=== PATIENT | female | born 1965 | race Caucasian/White ===

== ENCOUNTER 2016-06-10 16:37 | Emergency (ER) | payer OTHER ==
[2016-06-10 16:43] VITALS: BP 139/69; PULSE 61; RESP 18; TEMP 97.6
--- NOTE | 2016-06-10 17:14 | ED ---
Head Injury HPI - General Chief complaint: Head Injury Stated complaint: Head Injury Time Seen by Provider: 06/10/16 16:57 Source: patient, RN notes reviewed Mode of arrival: ambulatory Limitations: no limitations - History of Present Illness Initial comments: 50-year-old female presents emergency Department chief complaint head injury. Patient states yesterday she was trying to quickly get into her vehicle in which she struck the left side of her head, temporal region into the door. Patient states that she did feel dazed at the time but there was no LOC. Patient does complain of a headache and intermittent visual changes to the left eye. She states she just feels like there is pressure surrounding her eye but not actually override. Patient states there is a large amount of bruising which has gotten worse the swelling has improved. Patient has not taken Tylenol or ibuprofen for headache at this time. Patient denies any nausea, vomiting. There is been no abnormal behavior or confusion per significant other in the room. Patient has no neck pain or neck stiffness. - Related Data Home Medications Medication Instructions Recorded Confirmed Estrogen Otc 1 tab PO DAILY 06/10/16 06/10/16 Lisinopril [Prinivil] 5 mg PO DAILY 06/10/16 06/10/16 Allergies/Adverse reactions: Allergies Allergy/AdvReac Type Severity Reaction Status Date / Time No Known Allergies Allergy Verified 06/10/16 16:49 Review of Systems ROS Statement: Those systems with pertinent positive or pertinent negative responses have been documented in the HPI. ROS Other: All systems not noted in ROS Statement are negative. Past Medical History Past Medical History: Hypertension History of Any Multi-Drug Resistant Organisms: None Reported Past Surgical History: Section, Orthopedic Surgery, Tubal Ligation Additional Past Surgical History / Comment(s): Rotator Cuff x2 Past Psychological History: No Psychological Hx Reported Smoking Status: Former smoker Past Alcohol Use History: Occasional Past Drug Use History: None Reported General Exam Limitations: no limitations General appearance: alert, in no apparent distress Head exam: Present: atraumatic, normocephalic, normal inspection Eye exam: Present: normal appearance, PERRL, EOMI, periorbital swelling ( moderate left), periorbital tenderness (Left superior, lateral aspect). Absent : scleral icterus, conjunctival injection ENT exam: Present: normal exam, normal oropharynx, mucous membranes moist, TM's normal bilaterally, normal external ear exam Neck exam: Present: normal inspection, full ROM. Absent: tenderness, meningismus, lymphadenopathy Respiratory exam: Present: normal lung sounds bilaterally. Absent: respiratory distress, wheezes, rales, rhonchi, stridor Cardiovascular Exam: Present: regular rate, normal rhythm, normal heart sounds. Absent: systolic murmur, diastolic murmur, rubs, gallop, clicks Neurological exam: Present: alert, oriented X3, CN II-XII intact, reflexes normal. Absent: motor sensory deficit Skin exam: Present: warm, dry, intact, normal color. Absent: rash Course Vital Signs 06/10/16 16:40 Temperature 97.6 F Pulse Rate 61 Respiratory 18 Rate Blood Pressure 139/69 O2 Sat by Pulse 100 Oximetry Medical Decision Making - Medical Decision Making 50-year-old female presented emergency Department for head injury. Patient's CT does not show any intracranial bleed. Patient will be discharged return parameters discussed. Disposition Clinical Impression: Head injury, Contusion of forehead Disposition: HOME SELF-CARE Condition: Stable Instructions: Head Injury (ED) Additional Instructions: Please return to the Emergency Department if symptoms worsen or any other concerns. Time of Disposition: 17:57
--- NOTE | 2016-06-10 17:37 | CT ---
EXAMINATION TYPE: CT brain wo con DATE OF EXAM: 06/10/2016 5:29 PM COMPARISON: 01/01/2014 HISTORY: Left frontal injury yesterday. CT DLP: 1076 mGycm Automated exposure control for dose reduction was used. FINDINGS: The ventricles have normal size. There is no mass effect nor midline shift. There is no sign of intra cranial hemorrhage. The calvarium is intact. There is fluid level in left maxillary sinus. I see no e vidence of a blowout fracture of the orbits. There is no sign of an orbital mass. There is mild scalp soft tissue swelling over the left frontal bone. IMPRESSION: Fluid level in left maxillary sinus is new compared to old exam and consistent with sinusitis. No acu te intracranial abnormality.
== END 2016-06-10 18:04 | disposition home or self-care (01) ==
LOC: EC 16:37
DX: S09.90XA Unspecified injury of head, initial encounter (principal); S00.83XA Contusion of other part of head, initial encounter; W22.8XXA Striking against or struck by other objects, initial encounter; Z79.890 Hormone replacement therapy; I10 Essential (primary) hypertension; Z79.899 Other long term (current) drug therapy; Z87.891 Personal history of nicotine dependence
CPT/HCPCS: 70450; 99284; 99285

== ENCOUNTER → 2017-06-23 | Outpatient (CLI) | payer SELFPAY ==
--- NOTE | 2017-06-23 11:37 | WWHP ---
[facility] - HISTORY AND PHYSICAL DATE OF SERVICE: 06/23/2017 CHIEF COMPLAINT: The patient is here for her routine gynecologic exam and mammogram. HPI: This is a 51-year-old, G5, P2-0-3-2 with an LMP of 10/2014. The patient is status post tubal ligation. She states she has been having some problems with an intermittent vaginal discharge, which can seem like pus at times. She states it can be slightly yellowish without pruritus or odor. She states she can notice this for 2 weeks at a time. Currently, she is not experiencing the discharge. She has also been having painful intercourse. She states this is upon penetration. She states it has been worse during the past 2 years. It feels like something is blocking the vaginal opening. She has tried lubrication without much improvement. She believes she went through the menopausal change about 3 years ago. She did have hot flashes initially and these have improved. She states the discomfort with intercourse was not as bad a couple of years ago because they could get past the opening and intercourse was not as bad once they got past that point. This has become a bigger problem for her and her . PAST MEDICAL HISTORY: Chronic hypertension, currently not requiring medications. MEDICATIONS: Naproxen p.r.n. for knee pains. ALLERGIES: No known drug allergies. PAST SURGICAL HISTORY: section x2, laparoscopic tubal ligation in 1992, colonoscopy 2009. PAST PERSONAL LINES ACCOUNT EXECUTIVE HISTORY: She has no history of STDs. She has been menopausal since 2014. SOCIAL HISTORY: She denies tobacco and drug use and has about 10 alcohol containing drinks per year. 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 FAMILY HISTORY: Father had an NV. Two sisters have coronary artery disease. A brother also has coronary artery disease. Grandmother has diabetes. REVIEW OF SYSTEMS: She has lost about 8 pounds with dieting. This was after she gained nearly 20 pounds after starting at the [employer]. She denies respiratory, cardiac or GI problems. PHYSICAL EXAM: Blood pressure is 129/60, height 5 feet 4 inches, weight 184 pounds, BMI 31, temperature 96.9, pulse 55. This is a well-developed, well-nourished, white female, who is alert and oriented x3, in no acute distress. HEENT is within normal limits. NECK: Supple without mass or thyromegaly. CHEST AND LUNGS: Clear to auscultation. HEART: Regular rate and rhythm. Breasts are without mass or discharge. Axillary exam is negative for adenopathy. BACK: Negative for CVA tenderness. ABDOMEN: Soft, nontender, without palpable masses. PELVIC EXAM: Normal external genitalia without significant atrophy. I was unable to insert the regular Graves speculum because of very tight vaginal opening. The small Graves speculum all was difficult to insert because of very tight muscles at the introitus. The patient was unable to relax the muscles around the introitus. The cervix and vagina appear normal. There is no unusual discharge. There is no evidence of prolapse. I was able to insert a single digit for a bimanual examination. When trying to advance the finger past the introital muscles, there seems to be tenderness in the area of the posterior muscle. There is no cervical motion tenderness. The uterus is mid position, nongravid size and nontender. There are no palpable adnexal masses or tenderness. Rectovaginal exam is negative for mass or tenderness. This is negative for occult blood. EXTREMITIES: Nontender. IMPRESSION: 1. A 51-year-old menopausal female with dyspareunia, probably secondary to vaginismus and overactive pelvic floor muscles, possible levator ani overactivity. I doubt this is purely secondary to genital atrophy. 2. Intermittent vaginal discharge without any significant vaginal discharge at this time and she is currently asymptomatic. PLAN: 1. Pap smear was performed. 2. Self breast examination was discussed. 3. Screening mammogram will be done today. 4. We have discussed my findings of very tight introital muscles and my suspicion for vaginismus. We have discussed relaxation techniques with some type of biofeedback. We discussed approaches including using her fingers to try to dilate the opening with muscle relaxation techniques. We have also discussed the use of vaginal dilators which can be sequentially increased in size from small to large. 5. We have discussed the option of physical therapy for possible levator ani spasms and pelvic floor physical therapy. 6. GC and chlamydia testing from the cervix was obtained because of the intermittent vaginal discharge. 7. Trial of Estrace vaginal cream 1 to 2 grams intravaginally twice weekly. 8. I will try to get more information on vaginismus and will further discuss possible options with the patient. 9. She will also return in one year and p.r.n. OSMANY / NATO: [id number] / EVA
--- NOTE | 2017-06-23 11:44 | MM ---
Reason for exam: screening (asymptomatic). Last mammogram was performed 2 years and 7 months ago. Physical Findings: A clinical breast exam by your physician is recommended on an annual basis and results should be correlated with mammographic findings. MG Screening Mammo w CAD Bilateral CC and MLO view(s) were taken. Prior study comparison: November 20, 2014, bilateral MG screening mammo w CAD. April 18, 2013, bilateral digital screening mammo w/CAD. The breast tissue is heterogeneously dense. This may lower the sensitivity of mammography. Finding: There are indeterminate grouped/clustered calcifications in the lower inner quadrant, anterior position of the left breast. New finding since November 20, 2014 and April 18, 2013. ASSESSMENT: Incomplete: need additional imaging evaluation, BI-RAD 0 RECOMMENDATION: Special view mammogram of the left breast. [facility] will attempt to contact patient to return for supplemental views.
[2017-06-25 08:50] LABS: C. trachomatis,PCR Negative (Neg,Equiv); Chlamydia trachomatis Source Cervix; N. gonorrhoeae,PCR Negative (Neg,Equiv); Neisseria Source Cervix
== END | disposition home or self-care (01) ==
LOC: WWCWWP 09:30
PROVIDERS: ATTEND Obstetrics & Gynecology
DX: Z12.31 Encounter for screening mammogram for malignant neoplasm of breast (principal)
CPT/HCPCS: 77067; 87491; 87591

== ENCOUNTER → 2017-06-24 | Outpatient (CLI) | payer SELFPAY ==
--- NOTE | 2017-06-25 10:51 | MM ---
Reason for exam: additional evaluation requested from abnormal screening. Last mammogram was performed less than 1 month ago. Physical Findings: Nurse did not find any significant physical abnormalities on exam. MG Work Up Mamm w CAD LT CC with magnification, ML with magnification, and ML view(s) were taken of the left breast. Prior study comparison: June 23, 2017, bilateral MG screening mammo w CAD. November 20, 2014, bilateral MG screening mammo w CAD. The breast tissue is heterogeneously dense. This may lower the sensitivity of mammography. 9-10 o'clock faint punctate slightly heterogeneous calcifications anterior left breast appear to have been present on prior exams. A 6 month follow up recommended. These results were verbally communicated with the patient and result sheet given to the patient on 06/24/17. ASSESSMENT: Probably benign, BI-RAD 3 RECOMMENDATION: Follow-up diagnostic mammogram of the left breast in 6 months.
== END | disposition home or self-care (01) ==
LOC: RADMAMWWP 14:10
PROVIDERS: ATTEND Obstetrics & Gynecology
DX: R92.8 Other abnormal and inconclusive findings on diagnostic imaging of breast (principal)
CPT/HCPCS: 77065

== ENCOUNTER → 2017-12-21 | Outpatient (CLI) | payer OTHER ==
--- NOTE | 2017-12-21 15:33 | MM ---
Reason for exam: follow-up at short interval from prior study. Last mammogram was performed 6 months ago. Physical Findings: Nurse Summary: 1.5cm nodule in the left breast at 1 o'clock (nurse shannan). MG 3D Diag Mammo W/Cad LT CC and MLO view(s) were taken of the left breast. Technologist: Vanessa Giraldo RT (R)(M) Prior study comparison: June 24, 2017, left breast MG work up mamm w CAD LT. June 23, 2017, bilateral MG screening mammo w CAD. There are scattered fibroglandular densities. No significant new findings when compared with previous films. These results were verbally communicated with the patient and result sheet given to the patient on 12/21/17. ASSESSMENT: Incomplete: need additional imaging evaluation, BI-RAD 0 RECOMMENDATION: Ultrasound of the left breast.
--- NOTE | 2017-12-21 15:34 | USB ---
Reason for exam: additional evaluation requested from abnormal screening. US Breast Limited LT Left limited breast ultrasound including focal area of concern, retroareolar and axilla demonstrates no cystic or solid lesion seen. These results were verbally communicated with the patient and result sheet given to the patient on 12/21/17. ASSESSMENT: Negative, BI-RAD 1 RECOMMENDATION: Return to routine screening mammogram schedule for both breasts. Back on schedule. Manage patient on a clinical basis.
== END ==
LOC: RADMAMWWP 12:56
PROVIDERS: ATTEND Obstetrics & Gynecology
DX: R92.8 Other abnormal and inconclusive findings on diagnostic imaging of breast (principal)
CPT/HCPCS: 77061; 77065

== ENCOUNTER → 2019-05-12 | Outpatient (CLI) | payer OTHER ==
--- NOTE | 2019-05-13 14:53 | XR ---
EXAMINATION TYPE: XR Hip Complete LT DATE OF EXAM: 05/12/2019 CLINICAL HISTORY: Left hip pain with no known injury TECHNIQUE: AP and frogleg views of the left hip are obtained. COMPARISON: None. FINDINGS: There is no acute fracture/dislocation evident in the left hip. The joint space in the le ft hip appears aligned with acetabular roof sclerosis that is mild in small osteophytes at the acetab ular sourcil. The overlying soft tissue appears unremarkable. IMPRESSION: There is no acute fracture or dislocation in the left hip. Moderate left femoral acetabu lar arthropathy.
== END | disposition home or self-care (01) ==
LOC: RADXRMAIN 12:38
PROVIDERS: ATTEND Nurse Practitioner Family
DX: M12.852 Other specific arthropathies, not elsewhere classified, left hip (principal)
CPT/HCPCS: 73502

== ENCOUNTER 2019-05-20 11:11 | Observation (INO) | payer OTHER ==
[2019-05-20] MEDS ORDERED: NITROGLYCERIN OINT 1 INCH/GM PACKET TOPICAL STA (11:30)
[2019-05-20] MEDS ORDERED: NITROGLYCERIN SL TABS 0.4 MG TAB SUBLINGUAL STA (11:30)
[2019-05-20] MEDS ORDERED: ASPIRIN 81 MG PO STA (11:30)
--- NOTE | 2019-05-20 11:34 | ED ---
General Adult HPI - General Chief complaint: Chest Pain Stated complaint: chest pain Time Seen by Provider: 05/20/19 11:15 Source: patient, RN notes reviewed, old records reviewed Mode of arrival: ambulatory Limitations: no limitations - History of Present Illness Initial comments: This is a 53-year-old female presents emergency Department complaining of chest pain 2 hours prior to arrival. Patient states the pain is radiating to her neck. Patient states the pain is still there but not as intense as it was earlier. Patient denies any diaphoretic episodes. Patient states she was mildly short of breath. Patient denies any nausea. Patient's any abdominal pain. Patient states she has been suffering from gastroesophageal reflux over the last few days. Patient denies any lightheadedness or dizziness. Patient denies any headache patient denies numbness weakness. Patient denies any swelling to her legs or calf tenderness. - Related Data Home Medications Medication Instructions Recorded Confirmed Estrogen Otc 1 tab PO DAILY 06/10/16 06/10/16 Lisinopril [Prinivil] 5 mg PO DAILY 06/10/16 06/10/16 Allergies Allergy/AdvReac Type Severity Reaction Status Date / Time No Known Allergies Allergy Verified 05/20/19 11:12 Review of Systems ROS Statement: Those systems with pertinent positive or pertinent negative responses have been documented in the HPI. ROS Other: All systems not noted in ROS Statement are negative. Past Medical History Past Medical History: Hyperlipidemia, Hypertension, Thyroid Disorder History of Any Multi-Drug Resistant Organisms: None Reported Past Surgical History: Section, Orthopedic Surgery, Tubal Ligation Additional Past Surgical History / Comment(s): Rotator Cuff x2 Past Psychological History: No Psychological Hx Reported Smoking Status: Former smoker Past Alcohol Use History: Occasional Past Drug Use History: None Reported General Exam - General Exam Comments Initial Comments: GENERAL: Patient is well-developed and well-nourished. Patient is nontoxic and well-hydrated and is in mild distress. ENT: Neck is soft and supple. No significant lymphadenopathy is noted. Oropharynx is clear. Moist mucous membranes. Neck has full range of motion without eliciting any pain. EYES: The sclera were anicteric and conjunctiva were pink and moist. Extraocular movements were intact and pupils were equal round and reactive to light. Eyelids were unremarkable. PULMONARY: Unlabored respirations. Good breath sounds bilaterally. No audible rales rhonchi or wheezing was noted. CARDIOVASCULAR: There is a regular rate and rhythm without any murmurs gallops or rubs. ABDOMEN: Soft and nontender with normal bowel sounds. SKIN: Skin is clear with no lesions or rashes and otherwise unremarkable. NEUROLOGIC: Patient is alert and oriented x3. Cranial nerves II through XII are grossly intact. Motor and sensory are also intact. Normal speech, volume and content. Symmetrical smile. MUSCULOSKELETAL: Normal extremities with adequate strength and full range of motion. No lower extremity swelling or edema. No calf tenderness. LYMPHATICS: No significant lymphadenopathy is noted PSYCHIATRIC: Normal psychiatric evaluation. Limitations: no limitations Course Vital Signs 05/20/19 05/20/19 05/20/19 11:12 12:12 12:56 Temperature 97.6 F Pulse Rate 71 62 60 Respiratory 18 17 17 Rate Blood Pressure 165/91 156/80 156/80 O2 Sat by Pulse 100 100 98 Oximetry 05/20/19 13:18 Temperature Pulse Rate 57 L Respiratory 18 Rate Blood Pressure 137/71 O2 Sat by Pulse 99 Oximetry Medical Decision Making - Medical Decision Making EKG shows normal sinus rhythm at 67 bpm NE interval is on a 46 QRS is 94 QT interval 396 QTC is 418. Patient's EKG shows no significant elevation or depression. Patient was given aspirin and Nitropaste in the emergency department shortly thereafter her pain subsided to 0. Patient's chest x-ray showed no acute abnormality. The patient was having unstable angina/started the patient on heparin. I spoke with Dr. Ruiz he agreed to admit the patient admitted the patient was getting orders. I consulted cardiology I continued aspirin on heparin and Nitropaste on the floor. - Lab Data Result diagrams: 05/20/19 11:34 05/20/19 11:34 Lab Results 05/20/19 05/20/19 05/20/19 Range/Units 11:34 11:34 11:34 WBC 6.7 (3.8-10.6) k/uL RBC 4.23 (3.80-5.40) m/uL Hgb 12.7 (11.4-16.0) gm/dL Hct 36.8 (34.0-46.0) % MCV 87.0 (80.0-100.0) fL MCH 30.0 (25.0-35.0) pg MCHC 34.5 (31.0-37.0) g/dL RDW 13.0 (11.5-15.5) % Plt Count 384 (150-450) k/uL Neutrophils % 62 % Lymphocytes % 20 % Monocytes % 8 % Eosinophils % 4 % Basophils % 2 % Neutrophils # 4.1 (1.3-7.7) k/uL Lymphocytes # 1.3 (1.0-4.8) k/uL Monocytes # 0.6 (0-1.0) k/uL Eosinophils # 0.3 (0-0.7) k/uL Basophils # 0.2 (0-0.2) k/uL PT (9.0-12.0) sec INR (<1.2) APTT (22.0-30.0) sec Sodium 138 (137-145) mmol/L Potassium 3.7 (3.5-5.1) mmol/L Chloride 102 (98-107) mmol/L Carbon Dioxide 28 (22-30) mmol/L Anion Gap 8 mmol/L BUN 28 H (7-17) mg/dL Creatinine 0.95 (0.52-1.04) mg/dL Est GFR (CKD-EPI)AfAm 79 (>60 ml/min/1.73 sqM) Est GFR (CKD-EPI)NonAf 69 (>60 ml/min/1.73 sqM) Glucose 88 (74-99) mg/dL Calcium 9.9 (8.4-10.2) mg/dL Magnesium 1.9 (1.6-2.3) mg/dL Total Bilirubin 0.5 (0.2-1.3) mg/dL AST 33 (14-36) U/L ALT 31 (4-34) U/L Alkaline Phosphatase 98 (38-126) U/L Troponin I (0.000-0.034) ng/mL NT-Pro-B Natriuret Pep 50 pg/mL Total Protein 8.0 (6.3-8.2) g/dL Albumin 4.5 (3.5-5.0) g/dL 05/20/19 05/20/19 Range/Units 11:34 11:34 WBC (3.8-10.6) k/uL RBC (3.80-5.40) m/uL Hgb (11.4-16.0) gm/dL Hct (34.0-46.0) % MCV (80.0-100.0) fL MCH (25.0-35.0) pg MCHC (31.0-37.0) g/dL RDW (11.5-15.5) % Plt Count (150-450) k/uL Neutrophils % % Lymphocytes % % Monocytes % % Eosinophils % % Basophils % % Neutrophils # (1.3-7.7) k/uL Lymphocytes # (1.0-4.8) k/uL Monocytes # (0-1.0) k/uL Eosinophils # (0-0.7) k/uL Basophils # (0-0.2) k/uL PT 9.5 (9.0-12.0) sec INR 0.9 (<1.2) APTT 23.1 (22.0-30.0) sec Sodium (137-145) mmol/L Potassium (3.5-5.1) mmol/L Chloride (98-107) mmol/L Carbon Dioxide (22-30) mmol/L Anion Gap mmol/L BUN (7-17) mg/dL Creatinine (0.52-1.04) mg/dL Est GFR (CKD-EPI)AfAm (>60 ml/min/1.73 sqM) Est GFR (CKD-EPI)NonAf (>60 ml/min/1.73 sqM) Glucose (74-99) mg/dL Calcium (8.4-10.2) mg/dL Magnesium (1.6-2.3) mg/dL Total Bilirubin (0.2-1.3) mg/dL AST (14-36) U/L ALT (4-34) U/L Alkaline Phosphatase (38-126) U/L Troponin I <0.012 (0.000-0.034) ng/mL NT-Pro-B Natriuret Pep pg/mL Total Protein (6.3-8.2) g/dL Albumin (3.5-5.0) g/dL Critical Care Time Critical Care Time: Yes Total Critical Care Time: 35 Disposition Clinical Impression: Unstable angina pectoris Disposition: ADMITTED IP TO THIS HOSP Referrals: Pily Valladares DO [REFERRING] - 1-2 days Time of Disposition: 13:44
[2019-05-20 12:00] LABS: Basophils # (A) 0.2 k/uL (0-0.2); Basophils % (A) 2 %; Eosinophils # (A) 0.3 k/uL (0-0.7); Eosinophils % (A) 4 %; HCT 36.8 % (34.0-46.0); HGB 12.7 gm/dL (11.4-16.0); Lymphocytes # (A) 1.3 k/uL (1.0-4.8); Lymphocytes % (A) 20 %; MCHC 34.5 g/dL (31.0-37.0); Mean Platelet Volume 8.3; Monocytes # (A) 0.6 k/uL (0-1.0); Monocytes % (A) 8 %; Neutrophils # (A) 4.1 k/uL (1.3-7.7); Neutrophils % (A) 62 %; Platelet Count 384 k/uL (150-450); RBC 4.23 m/uL (3.80-5.40); WBC 6.7 k/uL (3.8-10.6)
[2019-05-20 12:01] LABS: Albumin 4.5 g/dL (3.5-5.0); Calcium 9.9 mg/dL (8.4-10.2); Magnesium 1.9 mg/dL (1.6-2.3); Potassium 3.7 mmol/L (3.5-5.1); Total Bilirubin 0.5 mg/dL (0.2-1.3)
[2019-05-20 12:09] LABS: INR 0.9 (<1.2); Partial Thromboplastin Time 23.1 sec (22.0-30.0); Prothrombin Time 9.5 sec (9.0-12.0)
--- NOTE | 2019-05-20 12:11 | XR ---
EXAMINATION TYPE: XR chest 2V DATE OF EXAM ORDERED: 05/20/2019 HISTORY: Chest Pain. REFERENCE: None. FINDINGS: The lungs are clear. Pleural spaces are clear. Heart size is normal. IMPRESSION: NORMAL CHEST.
[2019-05-20] MEDS ORDERED: HEPARIN SODIUM,PORCINE 5,000 UNIT/ML 1 ML VIAL IV ONE (13:33)
[2019-05-20] MEDS ORDERED: NITROGLYCERIN SL TABS 0.4 MG TAB SUBLINGUAL PRN (13:44)
[2019-05-20] MEDS ORDERED: HEPARIN SOD,PORK IN 0.45% NACL 25,000 UNIT in 0.45% NACL 1 250ML.BAG IV SCH (13:45)
[2019-05-20] MEDS ORDERED: ACETAMINOPHEN TAB 500 MG TAB PO PRN (15:31)
[2019-05-20] MEDS: NITROGLYCERIN OINT 1 INCH/GM PACKET TOPICAL SCH ×2 (17:27→23:30)
--- NOTE | 2019-05-20 18:53 | P.HPIM ---
History of Present Illness H&P Date: 05/20/19 Chief Complaint: Chest pain History of present complaint: This is a pleasant 53-year-old patient of Dr. Farmer. Chronic stable medical conditions include GERD, hypertension, hyperlipidemia, hypothyroid. About 4 years ago patient had a negative stress test. Patient does take naproxen appetite for a left hip arthritis. Patient was at work this morning when she developed a sharp midsternal pain and felt slightly short winded. Also slight nausea. And the discomfort went up to the neck and she fell little bit of throat tightening. Associated there was dizziness lightheadedness. For 2 days also she notices increased heartburn. States she did have peptic ulcer disease age of 14. Does take naproxen at night for left hip arthritis. Admitted for unstable angina. No prior cardiac history. 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 Family history: Patient's 2 sisters have coronary stents Physical examination: VITAL SIGNS: 97.6, 71, 18, 165/91, 100% room air GENERAL: [BMI 31.8, laying in bed awake comfortable. EYES: Pupils equal. Conjunctiva normal. HEENT: External appearance of nose and ears normal, oral cavity grossly normal. NECK: JVD not raised; masses not palpable. HEART: First and second heart sounds are normal; no edema. LUNGS: Respiratory rate normal; clear to auscultation. ABDOMEN: Soft, minimal epigastric tenderness, liver spleen not palpable, no masses palpable. PSYCH: Alert and oriented x3; mood and affect normal. NEUROLOGICAL: Cranial nerves grossly intact; no facial asymmetry, power and sensation grossly intact. LYMPHATICS: No lymph nodes palpable in the axilla and neck INVESTIGATIONS, reviewed in the clinical context: White count 6.7 hemoglobin 12.7 platelets 384 progression 3.7 creatinine 0.95 Troponin I 0.0122 EKG tracing personally reviewed by me-normal sinus rhythm Chest x-ray film personally reviewed by me-lung castellanos are clear Assessment: -This is a patient with precordial chest pain was cardiac risk factors include hypertension, hyperlipidemia, and a positive family history, with some atypical features with negative troponin 2 will need a further cardiac workup -GERD exacerbation in a patient with a prior history of peptic ulcer disease at the age of 14, and taking naproxen at night for left hip arthritis -Essential hypertension -Hyperlipidemia -Hypothyroid -Obesity BMI 31.8 Plan: Home medications resumed. Patient is on aspirin and Nitropaste IV heparin. Serial cardiac enzymes and place. Cardiology consulted. Naproxen has been held. Care was discussed with the patient. Questions were answered. Past Medical History Past Medical History: Hyperlipidemia, Hypertension, Thyroid Disorder Additional Past Medical History / Comment(s): Borderline diabetic. TIA 4 years ago. GI ulcer at age 14 (Does not remember exactly what happened to fix it. History of Any Multi-Drug Resistant Organisms: None Reported Past Surgical History: Section, Orthopedic Surgery, Tubal Ligation Additional Past Surgical History / Comment(s): Rotator Cuff x2 Past Anesthesia/Blood Transfusion Reactions: Postoperative Nausea & Vomiting (PONV) Past Psychological History: No Psychological Hx Reported Smoking Status: Former smoker Past Alcohol Use History: Occasional Past Drug Use History: None Reported - Past Family History Sister(s) Family Medical History: Coronary Artery Disease (CAD) Father Additional Family Medical History / Comment(s): Heart failure. Medications and Allergies Home Medications Medication Instructions Recorded Confirmed Type Atorvastatin [Lipitor] 40 mg PO DAILY 05/20/19 05/20/19 History Hydrochlorothiazide 25 mg PO DAILY 05/20/19 05/20/19 History Levothyroxine Sodium [Synthroid] 125 mcg PO DAILY 05/20/19 05/20/19 History Naproxen 1,000 mg PO HS 05/20/19 05/20/19 History Allergies Allergy/AdvReac Type Severity Reaction Status Date / Time No Known Allergies Allergy Verified 05/20/19 13:54 Physical Exam Vitals: Vital Signs Temp Pulse Pulse Resp BP BP Pulse Ox 05/20/19 16:00 69 20 135/65 100 05/20/19 14:27 62 20 137/69 100 05/20/19 14:24 61 18 145/68 98 05/20/19 13:44 100 05/20/19 13:18 57 L 18 137/71 99 05/20/19 12:56 60 17 156/80 98 05/20/19 12:12 62 17 156/80 100 05/20/19 11:12 97.6 F 71 18 165/91 100 Intake and Output 05/20/19 05/20/19 05/20/19 06:59 14:59 22:59 Other: # Voids 0 Weight 83.915 kg Results CBC & Chem 7: 05/20/19 11:34 05/20/19 11:34 Labs: Abnormal Lab Results - Last 24 Hours (Table) 05/20/19 Range/Units 11:34 BUN 28 H (7-17) mg/dL Thrombosis Risk Factor Assmnt - Choose All That Apply Any of the Below Risk Factors Present?: Yes Each Factor Represents 1 point: Age 41-60 years Other Risk Factors: No Other congenital or acquired thrombophilia - If yes, enter type in comment: No Thrombosis Risk Factor Assessment Total Risk Factor Score: 1 Thrombosis Risk Factor Assessment Level: Low Risk
[2019-05-20] MEDS: PANTOPRAZOLE 40 MG TABLET PO SCH (20:06)
[2019-05-20] MEDS ORDERED: MELATONIN 1 MG TAB PO SCH (21:00)
[2019-05-21] MEDS: NITROGLYCERIN OINT 1 INCH/GM PACKET TOPICAL SCH ×2 (05:09→11:43)
[2019-05-21] MEDS: CALCIUM CARBONATE LIQUID 500 MG/5 ML CUP PO SCH ×2 (06:18→12:20)
[2019-05-21] MEDS: PANTOPRAZOLE 40 MG TABLET PO SCH (06:18)
[2019-05-21 06:29] LABS: Cholesterol 221 mg/dL (<200); HDL Cholesterol 53 mg/dL (40-60); LDL Cholesterol,Calculated 122 mg/dL (0-99); Triglycerides 231 mg/dL (<150)
[2019-05-21] MEDS ORDERED: LEVOTHYROXINE 125 MCG TAB PO SCH (06:30)
[2019-05-21] MEDS ORDERED: ATORVASTATIN 40 MG TAB PO SCH (09:00)
[2019-05-21] MEDS ORDERED: ASPIRIN 325 MG TAB PO SCH (09:00)
[2019-05-21] MEDS ORDERED: HYDROCHLOROTHIAZIDE 25 MG TAB PO SCH (09:00)
[2019-05-21 09:12] VITALS: RESP 20; TEMP 97.7
--- NOTE | 2019-05-21 09:41 | P.CRDCN ---
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 She does have past medical history of eye pretension, hyperlipidemia, hypothyroidism, borderline diabetes with a hemoglobin A1c of 6.5, gastroesophageal reflux disease, possible early onset dementia that has been worked up as an outpatient with Dr. Vo. Patient presented to [facility] emergency center due to chest pain starting 2 hours prior to arrival that was a sharp type of pain in the midsternal area. She also felt a tightness around her throat. She denies any diaphoresis, no abdominal pain, no nausea. She denies lightheadedness or dizziness. She denies any lower extremity edema. Patient gives history that approximate 4 years ago she had a negative stress test. Upon presentation, blood pressure 165/91 and heart rate 71. EKG was in normal sinus rhythm with no acute ST-T wave changes. Chest x-ray was normal. CBC and CMP unremarkable. Troponin negative on 3 draws, troponin 231, cholesterol 221, LDL 122 HDL 53. Patient denies having any chest pain at the time of evaluation. She is willing to go home and have outpatient stress testing done. Patient does have a family history of coronary artery disease in dad is with history of coronary artery disease, 2 out of her 4 sisters have cardiac stents, mom has been worked up for palpitations. Patient does relate that she is under a lot of stress at home as children and grandchildren will be moving in with her in the near future. Review Of Systems: Constitutional: No fever, no chills, no night sweats. No weight change. No weakness, fatigue or lethargy. No daytime sleepiness. EENT: No headache. No blurred vision or double vision, no loss of vision. No loss of Hearing, no dizziness. No nasal drainage or congestion. No epistaxis. No sore throat. Lungs: No shortness of breath, cough, no sputum production. No wheezing. Cardiovascular: No chest pain, no lower extremity edema. No palpitations. No paroxysmal nocturnal dyspnea. No orthopnea. No lightheadedness or dizziness. No syncopal episodes. Abdominal: No abdominal pain. No nausea, vomiting. No diarrhea. No constipation. No bloody or tarry stools. No loss of appetite. Genitourinary: No dysuria, increased frequency, urgency. No urinary retention. Musculoskeletal: No myalgias. No muscle weakness, no gait dysfunction, no frequent falls. No back pain. No neck pain. Integumentary: No wounds, no lesions. No rash or pruritus. Neurologic: No aphasia. No facial droop. No change in mentation. No head injury. No headache. No paralysis. No paresthesia. Psychiatric: No depression. No anxiety. No mood swings. Endocrine: No abnormal blood sugars. No weight change. No excessive sweating or thirst. Physical examination: Gen: This is a 53-year-old female. She is resting in bed and appears to be comfortable and in no acute distress VS: Afebrile, heart rate 69, blood pressure 130/71, pulse ox 97% on room air HEENT: Head is atraumatic, normocephalic. Pupils equal, round. Sclerae is anicteric. NECK: Supple. No JVD. No lymphadenopathy. No thyromegaly. LUNGS: Clear to auscultation. No wheezes or rhonchi. No intercostal retractions. No chest wall tenderness. HEART: Regular rate and rhythm. No murmur. ABDOMEN: Soft. Bowel sounds are present. No masses. No tenderness. EXTREMITIES: No pedal edema. No calf tenderness. NEUROLOGICAL: Patient is awake, alert and oriented x3. Cranial nerves 2 through 12 are grossly intact. Assessment: Chest pain, acute coronary syndrome ruled out Hypertension Hyperlipidemia Borderline diabetes mellitus type 2 Hypothyroidism Family history of coronary artery disease Plan: Patient will be ambulated and if chest pain free, cleared for discharge home Continue current home medications, add aspirin 81 mg daily Outpatient stress testing to rule out coronary artery disease Follow-up with Dr. Patel in the office within one week Thank you kindly for this consultation. Nurse practitioner note has been reviewed, I agree with documented findings and plan of care. Patient was seen and examined. Past Medical History Past Medical History: Hyperlipidemia, Hypertension, Thyroid Disorder Additional Past Medical History / Comment(s): Borderline diabetic. TIA 4 years ago. GI ulcer at age 14 (Does not remember exactly what happened to fix it. History of Any Multi-Drug Resistant Organisms: None Reported Past Surgical History: Section, Orthopedic Surgery, Tubal Ligation Additional Past Surgical History / Comment(s): Rotator Cuff x2 Past Anesthesia/Blood Transfusion Reactions: Postoperative Nausea & Vomiting (PONV) Past Psychological History: No Psychological Hx Reported Smoking Status: Former smoker Past Alcohol Use History: Occasional Past Drug Use History: None Reported - Past Family History Sister(s) Family Medical History: Coronary Artery Disease (CAD) Father Additional Family Medical History / Comment(s): Heart failure. Medications and Allergies Home Medications Medication Instructions Recorded Confirmed Type Atorvastatin [Lipitor] 40 mg PO DAILY 05/20/19 05/20/19 History Hydrochlorothiazide 25 mg PO DAILY 05/20/19 05/20/19 History Levothyroxine Sodium [Synthroid] 125 mcg PO DAILY 05/20/19 05/20/19 History Naproxen 1,000 mg PO HS 05/20/19 05/20/19 History Allergies Allergy/AdvReac Type Severity Reaction Status Date / Time No Known Allergies Allergy Verified 05/20/19 13:54 Physical Exam Vitals: Vital Signs Temp Pulse Pulse Resp BP BP Pulse Ox 05/21/19 08:00 97.7 F 69 20 130/71 97 05/21/19 04:00 98.0 F 64 19 158/75 100 05/20/19 23:33 58 L 16 05/20/19 23:30 97.7 F 58 L 16 121/61 100 05/20/19 20:00 97.4 F L 61 18 119/55 99 05/20/19 16:00 69 20 135/65 100 05/20/19 14:27 62 20 137/69 100 05/20/19 14:24 61 18 145/68 98 05/20/19 13:44 100 05/20/19 13:18 57 L 18 137/71 99 05/20/19 12:56 60 17 156/80 98 05/20/19 12:12 62 17 156/80 100 05/20/19 11:12 97.6 F 71 18 165/91 100 Intake and Output 05/20/19 05/21/19 05/21/19 22:59 06:59 14:59 Intake Total 169.984 Balance 169.984 Intake: Intake, IV Titration 169.984 Amount Heparin Sod,Pork in 0.45% 169.984 NaCl 25,000 unit In 0.45 % NaCl 1 250ml.bag @ 11.8 UNITS/KG/HR 9.902 mls/hr IV .Q24H [facility] Rx#: [id number] Other: Voiding Method Toilet Toilet # Voids 1 1 Weight 83.4 kg Results 05/20/19 11:34 05/20/19 11:34 Cardiac Enzymes 05/20/19 05/20/19 05/20/19 Range/Units 11:34 11:34 17:07 AST 33 (14-36) U/L Troponin I <0.012 <0.012 (0.000-0.034) ng/mL 05/20/19 Range/Units 23:00 AST (14-36) U/L Troponin I <0.012 (0.000-0.034) ng/mL Coagulation 05/20/19 05/20/19 05/21/19 Range/Units 11:34 20:08 05:52 PT 9.5 (9.0-12.0) sec APTT 23.1 45.0 H 41.8 H (22.0-30.0) sec Lipids 05/21/19 Range/Units 05:52 Triglycerides 231 H (<150) mg/dL Cholesterol 221 H (<200) mg/dL HDL Cholesterol 53 (40-60) mg/dL CBC 05/20/19 Range/Units 11:34 WBC 6.7 (3.8-10.6) k/uL RBC 4.23 (3.80-5.40) m/uL Hgb 12.7 (11.4-16.0) gm/dL Hct 36.8 (34.0-46.0) % Plt Count 384 (150-450) k/uL Comprehensive Metabolic Panel 05/20/19 Range/Units 11:34 Sodium 138 (137-145) mmol/L Potassium 3.7 (3.5-5.1) mmol/L Chloride 102 (98-107) mmol/L Carbon Dioxide 28 (22-30) mmol/L BUN 28 H (7-17) mg/dL Creatinine 0.95 (0.52-1.04) mg/dL Glucose 88 (74-99) mg/dL Calcium 9.9 (8.4-10.2) mg/dL AST 33 (14-36) U/L ALT 31 (4-34) U/L Alkaline Phosphatase 98 (38-126) U/L Total Protein 8.0 (6.3-8.2) g/dL Albumin 4.5 (3.5-5.0) g/dL Current Medications Generic Name Dose Route Start Last Admin Trade Name Fredrickq PRN Reason Stop Dose Admin Acetaminophen 1,000 mg 05/20/19 15:31 05/20/19 18:45 Tylenol Tab PO 1,000 mg HS PRN Administration Fever and/ or Pain Aspirin 325 mg 05/21/19 09:00 Aspirin PO DAILY [facility] Atorvastatin Calcium 40 mg 05/21/19 09:00 Lipitor PO DAILY [facility] Calcium Carbonate/Glycine 500 mg 05/21/19 07:30 05/21/19 06:18 Tums Liquid PO Not Given TID-W/MEALS [facility] Hydrochlorothiazide 25 mg 05/21/19 09:00 Hydrodiuril PO DAILY [facility] Heparin Sodium/Sodium Chloride 250 mls @ 9.902 mls/hr 05/20/19 13:45 05/21/19 07:00 25,000 unit/ Sodium Chloride IV 13.8 units/kg/hr .Q24H [facility] 11.58 mls/hr Titration Protocol 11.8 UNITS/KG/HR Levothyroxine Sodium 125 mcg 05/21/19 06:30 05/21/19 06:18 Synthroid PO 125 mcg DAILY@0630 [facility] Administration Melatonin 2 mg 05/20/19 21:00 05/20/19 18:45 Melatonin PO 2 mg HS [facility] Administration Nitroglycerin 0.4 mg 05/20/19 13:44 Nitrostat SUBLINGUAL Q5M PRN Chest Pain Nitroglycerin 1 inch 05/20/19 18:00 05/21/19 05:09 Nitro-Bid Oint TOPICAL Not Given Q6HR [facility] Pantoprazole Sodium 40 mg 05/20/19 18:45 05/21/19 06:18 Protonix PO 40 mg AC-BID [facility] Administration Intake and Output 05/20/19 05/21/19 05/21/19 22:59 06:59 14:59 Intake Total 169.984 Balance 169.984 Intake: Intake, IV Titration 169.984 Amount Heparin Sod,Pork in 0.45% 169.984 NaCl 25,000 unit In 0.45 % NaCl 1 250ml.bag @ 11.8 UNITS/KG/HR 9.902 mls/hr IV .Q24H [facility] Rx#: [id number] Other: Voiding Method Toilet Toilet # Voids 1 1 Weight 83.4 kg 05/20/19 11:34 05/20/19 11:34
[2019-05-21 12:43] VITALS: BP 119/65; PULSE 72
--- NOTE | 2019-05-21 22:37 | P.DS ---
Providers Date of admission: 05/20/19 13:46 Expected date of discharge: 05/21/19 Attending physician: Jonatan Ruiz Consults: 05/20/19 13:44 Consult Physician Urgent Consulting Provider: [facility] Consult Reason/Comments: Unstable angina Do you want consulting provider notified?: Yes Primary care physician: Brandt Farmer [facility] Course: Chief Complaint: Chest pain History of present complaint: This is a pleasant 53-year-old patient of Dr. Farmer. Chronic stable medical conditions include GERD, hypertension, hyperlipidemia, hypothyroid. About 4 years ago patient had a negative stress test. Patient does take naproxen at night for a left hip arthritis. Patient was at work this morning when she developed a sharp midsternal pain and felt slightly short winded. Also slight nausea. And the discomfort went up to the neck and she fell little bit of throat tightening. Associated there was dizziness lightheadedness. For 2 days also she notices increased heartburn. States she did have peptic ulcer disease age of 14. Does take naproxen at night for left hip arthritis. Admitted for unstable angina. No prior cardiac history. Seen by cardiology. Okay to be discharged. Outpatient stress test. Patient told to cut back the dose of naproxen. No further symptoms. Consultation: Dr. Darnell Du From cardiology Physical examination: VITAL SIGNS: 97.7, 69, 20, 130/71, 97% on room air GENERAL: Laying in bed, comfortable. EYES: Pupils equal. Conjunctiva normal. HEENT: External appearance of nose and ears normal, oral cavity grossly normal. NECK: JVD not raised; masses not palpable. HEART: First and second heart sounds are normal; no edema. LUNGS: Respiratory rate normal; clear to auscultation. ABDOMEN: Soft, minimal epigastric tenderness, liver spleen not palpable, no masses palpable. PSYCH: Alert and oriented x3; mood and affect normal. INVESTIGATIONS, reviewed in the clinical context: White count 6.7 hemoglobin 12.7 platelets 384 progression 3.7 creatinine 0.95 Troponin I 0.0122 EKG tracing personally reviewed by me-normal sinus rhythm Chest x-ray film personally reviewed by me-lung castellanos are clear LDL 122 Assessment: -precordial chest pain was cardiac risk factors include hypertension, hyperlipidemia, and a positive family history, with some atypical features with negative troponin 2 will need a further cardiac workup -GERD exacerbation in a patient with a prior history of peptic ulcer disease at the age of 14, and taking naproxen at night for left hip arthritis -Essential hypertension -Hyperlipidemia -Hypothyroid -Obesity BMI 31.8 Disposition: Home Patient Condition at Discharge: Stable Plan - Discharge Summary Discharge Rx Participant: Yes New Discharge Prescriptions: New Aspirin EC [Ecotrin Low Dose] 81 mg PO DAILY #30 tablet. Omeprazole [PriLOSEC] 20 mg PO AC-BID #60 cap Continue Levothyroxine Sodium [Synthroid] 125 mcg PO DAILY Atorvastatin [Lipitor] 40 mg PO DAILY Hydrochlorothiazide 25 mg PO DAILY Changed Naproxen 500 mg PO HS #0 Discharge Medication List Atorvastatin [Lipitor] 40 mg PO DAILY 05/20/19 [History] Hydrochlorothiazide 25 mg PO DAILY 05/20/19 [History] Levothyroxine Sodium [Synthroid] 125 mcg PO DAILY 05/20/19 [History] Aspirin EC [Ecotrin Low Dose] 81 mg PO DAILY #30 tablet. 05/21/19 [Rx] Naproxen 500 mg PO HS #0 05/21/19 [Rx] Omeprazole [PriLOSEC] 20 mg PO AC-BID #60 cap 05/21/19 [Rx] Follow up Appointment(s)/Referral(s): Shiva Patel MD [STAFF PHYSICIAN] - 1 Week (To schedule an outpatient stress test. ) Pily Valladares DO [REFERRING] - 1-2 days Julio Steward MD [STAFF PHYSICIAN] - 1 Week (egd ) Patient Instructions/Handouts: Cardiac Stress Test (GEN) Discharge Disposition: HOME SELF-CARE
== END 2019-05-21 14:47 | disposition home or self-care (01) ==
LOC: SUPCPDRO 11:11 → EC 11:11 → 3SCARD 13:46
PROVIDERS: ADMIT Hospitalist; ATTEND Hospitalist
DX: R07.2 Precordial pain (principal); K21.9 Gastro-esophageal reflux disease without esophagitis; E03.9 Hypothyroidism, unspecified; I10 Essential (primary) hypertension; E78.5 Hyperlipidemia, unspecified; R73.03 Prediabetes; E66.9 Obesity, unspecified; Z87.11 Personal history of peptic ulcer disease; M16.12 Unilateral primary osteoarthritis, left hip; Z68.31 Body mass index [BMI] 31.0-31.9, adult; Z79.890 Hormone replacement therapy; Z79.899 Other long term (current) drug therapy; Z82.49 Family history of ischemic heart disease and other diseases of the circulatory system; Z86.73 Personal history of transient ischemic attack (TIA), and cerebral infarction without residual deficits; Z87.891 Personal history of nicotine dependence; Z79.1 Long term (current) use of non-steroidal anti-inflammatories (NSAID); Z63.79 Other stressful life events affecting family and household
CPT/HCPCS: 96366 ×2; 93005 ×2; 96376; 96365; 99291; 36415; 83880; 80061; 80053; 83735; 84484; 85025; 85610; 85730 ×2; 71046; G0378 ×2; J1644 ×2

== ENCOUNTER 2020-07-19 18:43 | Emergency (ER) | payer OTHER ==
[2020-07-19 18:49] VITALS: BP 195/91; PULSE 80; RESP 18; TEMP 98.6
[2020-07-19] MEDS ORDERED: Acetaminophen-Codeine 300-30mg TAB PO STA (19:12)
--- NOTE | 2020-07-19 19:23 | ED ---
Head Injury HPI - General Chief complaint: Head Injury Stated complaint: fall/head lac Time Seen by Provider: 07/19/20 19:03 Source: patient Mode of arrival: wheelchair Limitations: no limitations - History of Present Illness Initial comments: 54-year-old female presents emergency Department with chief complaint of a head injury. Status occurred about half hour prior to arrival. Patient states she slipped and fell on the edge of the car. Reports a hematoma on the left temporal region as well as a laceration measuring approximately 1.5 cm. states the tetanus is up-to-date. Reports pain sharp in nature 01/10. Denies blurry vision, gait instability, one-sided weakness or paresthesias. She does report some bleeding at the injured site. She also reports some pain along the left paraspinal region of the cervical spine. She denies any other injuries. - Related Data Home Medications Medication Instructions Recorded Confirmed Naproxen 500 mg PO BID 07/19/20 07/19/20 Allergies/Adverse reactions: Allergies Allergy/AdvReac Type Severity Reaction Status Date / Time No Known Allergies Allergy Verified 07/19/20 19:49 Review of Systems ROS Statement: Those systems with pertinent positive or pertinent negative responses have been documented in the HPI. ROS Other: All systems not noted in ROS Statement are negative. Past Medical History Past Medical History: Hyperlipidemia, Hypertension, Thyroid Disorder Additional Past Medical History / Comment(s): Borderline diabetic. TIA 4 years ago. GI ulcer at age 14 (Does not remember exactly what happened to fix it. History of Any Multi-Drug Resistant Organisms: None Reported Past Surgical History: Section, Orthopedic Surgery, Tubal Ligation Additional Past Surgical History / Comment(s): Rotator Cuff x2 Past Anesthesia/Blood Transfusion Reactions: Postoperative Nausea & Vomiting (PONV) Past Psychological History: No Psychological Hx Reported Smoking Status: Never smoker Past Alcohol Use History: Occasional Past Drug Use History: None Reported - Past Family History Sister(s) Family Medical History: Coronary Artery Disease (CAD) Father Additional Family Medical History / Comment(s): Heart failure. General Exam Limitations: no limitations General appearance: alert, in no apparent distress Head exam: Present: normocephalic. Absent: atraumatic (1.5 cm laceration to the left upper region along with underlying hematoma. No active bleeding at this time.), normal inspection, other (Negative Cao sign, raccoon eyes, hemotympanum.) Eye exam: Present: normal appearance, PERRL, EOMI Pupils: Present: normal accommodation ENT exam: Present: normal exam, normal oropharynx, mucous membranes moist Neck exam: Present: normal inspection, tenderness (Tenderness over the left paraspinal region of the cervical spine.), full ROM. Absent: lymphadenopathy Respiratory exam: Present: normal lung sounds bilaterally. Absent: respiratory distress Cardiovascular Exam: Present: regular rate, normal rhythm, normal heart sounds Extremities exam: Present: normal inspection, full ROM, normal capillary refill. Absent: tenderness Back exam: Present: normal inspection, full ROM. Absent: tenderness, CVA ten derness (R), CVA tenderness (L) Neurological exam: Present: alert, oriented X3 Psychiatric exam: Present: normal affect, normal mood Skin exam: Present: warm, dry, intact, normal color Course Vital Signs 07/19/20 18:44 Temperature 98.6 F Pulse Rate 80 Respiratory 18 Rate Blood Pressure 195/91 O2 Sat by Pulse 100 Oximetry Procedures - Laceration Laceration #1 Consent Obtained: verbal consent Indication: laceration Site: scalp Size (cm): 2 Description: linear, clean Depth: simple, single layer Sedation/Analgesia: none Pre-repair: irrigated extensively, deep structures intact Type of Sutures: other (Art) Number of Sutures: 3 Technique: other (Stable) Patient Tolerated Procedure: well, no complications Medical Decision Making - Medical Decision Making 54-year-old female presents to emergency Department with a chief complaint of fall. On physical examination, she has a laceration that was repaired with 3 art. Patient tolerate the procedure well. CT imaging of the brain and C- spine is unremarkable. Patient has a tetanus that is up-to-date. Return parameters discussed the patient was attending agreeable. Advised to return for suture removal. Case discussed with Disposition Clinical Impression: Hematoma of scalp, Head injury, Laceration Disposition: HOME SELF-CARE Condition: Stable Instructions (If sedation given, give patient instructions): Laceration (DC), Staple Care (ED) Additional Instructions: Please return to the emergency room in 10-12 days to have sutures removed. Please watch for any signs of infection which may include increased pain, swelling, redness, fever or chills. Please return to emergency room for any signs of infection do occur. Please use clean soap and water over the area to prevent scabbing over your stitches. Please leave wound covered for the first 24-48 hours and then leave wound open to air. Please return to the emergency room for any other concerns. Is patient prescribed a controlled substance at d/c from ED?: No Referrals: Brandt Farmer DO [Primary Care Provider] - 1-2 days Time of Disposition: 20:01
--- NOTE | 2020-07-19 19:44 | CT ---
EXAMINATION TYPE: CT brain lauraine wo con DATE OF EXAM: 07/19/2020 COMPARISON: CT brain 06/10/2016 HISTORY: Fall with head injury. CT DLP: 1392.8 mGycm Automated exposure control for dose reduction was used. Images of the brain and cervical spine obtained without contrast. Cervical vertebra have normal alignment. There is narrowing at C5-6 disc space with mild spurring of the endplates. The posterior elements are intact. There is some neural foraminal narrowing on the rig ht side at C5-C6 due to uncovertebral spurring. The skull base is intact. Facet joints are intact. Th ere is no significant facet arthropathy. There is normal aeration of the mastoid sinuses. Ventricles and sulci appear normal. There is no mass effect nor midline shift. There is no sign of in tracranial hemorrhage. Calvarium is intact. Sella turcica is normal. IMPRESSION: Spondylosis at C5-6. No fracture. Negative CT scan of the brain. No change compared to old exam.
[2020-07-19] MEDS ORDERED: ACET/COD 300 MG/30 MG STARTER PACK 6 TAB BTL PO STA (20:13)
== END 2020-07-19 20:28 | disposition home or self-care (01) ==
LOC: EC 18:43
DX: S00.03XA Contusion of scalp, initial encounter (principal); E78.5 Hyperlipidemia, unspecified; I10 Essential (primary) hypertension; Z98.51 Tubal ligation status; Z86.73 Personal history of transient ischemic attack (TIA), and cerebral infarction without residual deficits; W01.0XXA Fall on same level from slipping, tripping and stumbling without subsequent striking against object, initial encounter
CPT/HCPCS: 70450; 72125; 99283

== ENCOUNTER 2021-01-24 11:12 | Day surgery (SDC) | payer SELFPAY ==
[2021-01-21 10:52] VITALS: BMI 30.9
[~2021-01-24 11:12] MED LIST: DEXAMETHASONE SOD PHOSPHATE 4 MG/ML 1 ML VIAL IV ONE; HYDROmorphone 0.5 MG/0.5 ML SYRINGE IVP PRN; MIDAZOLAM 2 MG/2 ML VIAL IV PRN; ONDANSETRON 4 MG/2 ML VIAL IVP ONE; Pre Op ABX Message 1 EACH MISC MISCELLANE ONE; SCOPOLAMINE 1.5MG/72HR PATCH TRANSDERM ONE
[2021-01-24 12:11] VITALS: TEMP 96.6
[2021-01-24] MEDS: LACTATED RINGERS 1,000 ML IV SCH ×2 (12:11→13:32)
[2021-01-24] MEDS ORDERED: PROPOFOL 10 MG/ML 20 ML VIAL IV ONE (13:29)
[2021-01-24] MEDS ORDERED: MIDAZOLAM 2 MG/2 ML VIAL ONE (13:29)
[2021-01-24] MEDS ORDERED: fentaNYL (PF) 50 MCG/ML 2 ML AMP ONE (13:29)
[2021-01-24] MEDS ORDERED: LIDOCAINE 1% INJ 10MG/ML (20 ML MDV) ONE (13:29)
[2021-01-24] MEDS ORDERED: KETAMINE 10 MG/ML 20 ML VIAL ONE (13:29)
[2021-01-24] MEDS ORDERED: LIDOCAINE 1% INJ 10MG/ML (20 ML MDV) SQ ONE (13:33)
--- NOTE | 2021-01-24 14:06 | P.OP ---
Date of Procedure: 01/24/21 Procedure(s) Performed: PREOPERATIVE DIAGNOSES: 1. Right wrist dorsal ganglion cyst POSTOPERATIVE DIAGNOSES: 1. Right wrist dorsal ganglion cyst PROCEDURES PERFORMED: 1. Right wrist dorsal ganglion cyst excision ANESTHESIA: Local with IV sedation DANCE HISTORIAN: None COMPLICATIONS: None ESTIMATED BLOOD LOSS: none DISPOSITION: To post-anesthesia care unit INDICATIONS: Cathy is a 55-year-old female who has had a dorsal ganglion cyst for several months which is symptomatic and inhibiting flexion of the wrist. She desires to have the cyst removed. I discussed the steps of the surgery as well as potential risks and complications as being inclusive of, but not limited to: Bleeding, infection, scarring, discomfort, blood vessel and/or nerve damage, need for further surgery, stiffness, tendon injury, persistence or recurrence of the cyst and other risks. The patient is aware of these risks and wishes to proceed with surgery. The consent form has been signed. PROCEDURE: After appropriate consent was obtained, the patient was taken to the operating room placed in the supine position. Anesthesia was initiated consisting of sedation, and after confirmation of adequate anesthesia, the patient was carefully positioned. Care was taken to make sure that all pressure points were adequately padded. Timeout was called, confirming patient identity, side, procedure, and no antibiotics were administered. A ring block consisting of 10 mL of lidocaine was placed well proximal to the cyst on the dorsal aspect of the distal forearm. Limb was exsanguinated with an Esmarch bandage and the tourniquet was inflated to 250 mmHg. Total tourniquet time for the case was approximately 16 minutes. Incision was created following Macie's skin lines over the dorsal aspect of the wrist directly over the palpable and visible cyst. Incision was carried down carefully just through skin and then blunt dissection was carried down to the extensor retinaculum and fascia. Fascial split was performed in line with the incision, revealing the underlying extensor tendons and cyst. Cyst was incised and fluid was removed to ease removal, and it was grasped with a forcep and removed using a combination of blunt and sharp dissection with both knife and dissecting scissors. The cyst was carried down to its stalk which appeared to be emanating from the lunotriquetral joint. This stalk was excised removing a square-shaped segment of dorsal capsule approximately 3 mm x 3 mm in size. The radiocarpal joint was able to be visualized through this small window. Cauterization was performed of the capsule around the window to maintain hemostasis. Tourniquet was released and hemostasis was accomplished with a combination of cauterization and pressure. Closure was performed of the skin using interrupted 4-0 nylon mattress sutures. Vascular status remained good with less than 2 second capillary refill. Patient tolerated the procedure well and taken to recovery room in stable condition. Counts were correct.
[2021-01-24 14:24] VITALS: BP 133/81; PULSE 49; RESP 18
== END 2021-01-24 14:54 | disposition home or self-care (01) ==
LOC: OR 11:12
PROVIDERS: ATTEND Orthopaedic Surgery
DX: M67.431 Ganglion, right wrist (principal); I10 Essential (primary) hypertension; E78.5 Hyperlipidemia, unspecified; Z86.73 Personal history of transient ischemic attack (TIA), and cerebral infarction without residual deficits; Z79.899 Other long term (current) drug therapy; Z79.890 Hormone replacement therapy; Z87.891 Personal history of nicotine dependence
CPT/HCPCS: 25111; 88304; J2250; J1100; J2405; J2001; J3010; J2704

== ENCOUNTER → 2021-08-29 | Outpatient (CLI) | payer OTHER ==
--- NOTE | 2021-08-29 17:19 | XR ---
EXAMINATION TYPE: XR cervical spine comp DATE OF EXAM: 08/29/2021 COMPARISON: CT scan 07/19/2020 HISTORY: Pain TECHNIQUE: 5 views FINDINGS: Cervical vertebra have normal alignment. There is degenerative disc space narrowing at C5-6 with mild spurring of the endplates. Posterior elements are intact. The neural foramina are widely p atent. Atlantoaxial facet joint is normal. IMPRESSION: Spondylotic changes at C5-6. No fracture. No change compared to old exam.
--- NOTE | 2021-08-31 10:06 | XR ---
EXAMINATION TYPE: XR humerus RT DATE OF EXAM: 08/29/2021 COMPARISON: None HISTORY: Fall TECHNIQUE: Two-view right humerus FINDINGS: Joint spaces are preserved. No acute fracture or dislocation is evident. Soft tissues are n ormal. Follow-up exams can be performed 7-10 days from acute trauma for continued pain. IMPRESSION: 1. Normal 2 view right humerus
--- NOTE | 2021-08-31 10:07 | XR ---
EXAMINATION TYPE: XR shoulder complete RT DATE OF EXAM: 08/29/2021 COMPARISON: NONE HISTORY: Pain TECHNIQUE: Shoulder examined in 3 views FINDINGS: The humeral head articulates with the glenoid. The acromio-clavicular junction has mild inferior spurring. No acute fractures or dislocations are evident. A follow up study can be performed 7-10 days from acute trauma for continued pain. IMPRESSION: 1. Normal three-view right shoulder
== END | disposition home or self-care (01) ==
LOC: RADXRMAIN 16:39
PROVIDERS: ATTEND Emergency Medicine
DX: M47.812 Spondylosis without myelopathy or radiculopathy, cervical region (principal)
CPT/HCPCS: 72050

== ENCOUNTER → 2021-09-04 | Outpatient (CLI) | payer OTHER ==
--- NOTE | 2021-09-04 16:47 | MR ---
EXAMINATION TYPE: MR shoulder RT wo con DATE OF EXAM: 09/04/2021 COMPARISON: Right shoulder 08/29/2021 HISTORY: Right shoulder injury at work 06-19-. History of surgery. TECHNIQUE: Multiplanar, multisequence imaging of the right shoulder is performed without contrast. FINDINGS: Rotator Cuff: There is abnormal increased intrinsic signal within the rotator cuff, there is thickeni ng, partial tear is suspected the supraspinatus tendon anteriorly. Acromioclavicular Joint: Distal acromion is downturned, acromioclavicular joint shows arthropathy jordan nge. Glenohumeral Joint: Intact. Labrum: The labrum appears grossly intact given limitation of non-arthrogram study, suspect a sublabr al foramen rather than labral tear. Biceps Tendon: The long head of biceps is in normal location within bicipital groove. Bone marrow signal: Probable pseudocysts present within the humeral head Other: There is some fluid signal in the subacromial subdeltoid bursa IMPRESSION: Correlate for impingement, partial rotator cuff tear is suspected anteriorly at the supraspinatus ten don insertion, there is likely some fraying present
== END | disposition home or self-care (01) ==
LOC: RADMRIMAIN 14:18
PROVIDERS: ATTEND Emergency Medicine
DX: S49.91XA Unspecified injury of right shoulder and upper arm, initial encounter (principal); Y99.0 Civilian activity done for income or pay; Z98.890 Other specified postprocedural states

== ENCOUNTER 2021-09-29 16:33 | Emergency (ER) | payer OTHER ==
[2021-09-29 19:02] VITALS: BP 154/78; PULSE 60; RESP 18; TEMP 98.5
--- NOTE | 2021-09-29 20:00 | ED ---
Lower Extremity Injury HPI - General Chief Complaint: Extremity Injury, Lower Stated Complaint: R Knee Pain Time Seen by Provider: 09/29/21 19:47 Source: patient Mode of arrival: wheelchair Limitations: no limitations - Related Data Home Medications Medication Instructions Recorded Confirmed Naproxen 500 mg PO BID 07/19/20 01/22/21 Levothyroxine Sodium [Synthroid] 125 mcg PO DAILY 01/21/21 01/21/21 hydroCHLOROthiazide 25 mg PO DAILY 01/21/21 01/21/21 Allergies Allergy/AdvReac Type Severity Reaction Status Date / Time No Known Allergies Allergy Verified 09/29/21 19:02 Review of Systems ROS Statement: Those systems with pertinent positive or pertinent negative responses have been documented in the HPI. ROS Other: All systems not noted in ROS Statement are negative. Past Medical History Past Medical History: CVA/TIA, Hyperlipidemia, Hypertension, Thyroid Disorder Additional Past Medical History / Comment(s): Borderline diabetic. TIA 4 years ago. GI ulcer at age 14 (Does not remember exactly what happened to fix it. History of Any Multi-Drug Resistant Organisms: None Reported Past Surgical History: Section, Orthopedic Surgery, Tubal Ligation Additional Past Surgical History / Comment(s): Rotator Cuff x2 Past Anesthesia/Blood Transfusion Reactions: Postoperative Nausea & Vomiting (PONV) Past Psychological History: No Psychological Hx Reported Smoking Status: Former smoker Past Alcohol Use History: None Reported Past Drug Use History: None Reported - Past Family History Sister(s) Family Medical History: Coronary Artery Disease (CAD) Father Additional Family Medical History / Comment(s): Heart failure. General Exam Limitations: no limitations Course Vital Signs 09/29/21 19:00 Temperature 98.5 F Pulse Rate 60 Respiratory 18 Rate Blood Pressure 154/78 O2 Sat by Pulse 100 Oximetry Disposition Clinical Impression: Knee sprain Disposition: HOME SELF-CARE Condition: Good Instructions (If sedation given, give patient instructions): Knee Sprain (ED), Knee Immobilizer (ED) Additional Instructions: Please take your home Naprosyn as needed for pain and inflammation. Please follow-up with her orthopedic physician in the next several days. Is patient prescribed a controlled substance at d/c from ED?: No Referrals: Brandt Farmer DO [Primary Care Provider] - 1-2 days Time of Disposition: 19:59
--- NOTE | 2021-09-29 20:03 | XR ---
EXAMINATION TYPE: XR knee complete RT DATE OF EXAM: 09/29/2021 COMPARISON: NONE HISTORY: Pain and swelling TECHNIQUE: 3 views FINDINGS: I see no fracture nor dislocation. Joint spaces are normal. No sign of joint effusion. IMPRESSION: Negative right knee exam. No fracture seen.
--- NOTE | 2021-09-29 20:08 | ED ---
Lower Extremity Injury HPI - General Chief Complaint: Extremity Injury, Lower Stated Complaint: R Knee Pain Time Seen by Provider: 09/29/21 19:47 Source: patient Mode of arrival: wheelchair Limitations: no limitations - History of Present Illness Initial Comments: This 55-year-old female presents complaining of right knee pain. She states that she was just standing at work today when she developed pain in the right knee. It is primarily to the lateral aspect and at one time in the posterior aspect of the right knee. She denies any actual injuries. She denies any previous similar incidents. She's never had any knee problems in the past. She does have pain with certain movements and ambulation. She denies any other complaints or modifying factors except she does relate some swelling to the right knee. - Related Data Home Medications Medication Instructions Recorded Confirmed Naproxen 500 mg PO BID 07/19/20 01/22/21 Levothyroxine Sodium [Synthroid] 125 mcg PO DAILY 01/21/21 01/21/21 hydroCHLOROthiazide 25 mg PO DAILY 01/21/21 01/21/21 Allergies Allergy/AdvReac Type Severity Reaction Status Date / Time No Known Allergies Allergy Verified 09/29/21 19:02 Review of Systems ROS Statement: Those systems with pertinent positive or pertinent negative responses have been documented in the HPI. ROS Other: All systems not noted in ROS Statement are negative. Past Medical History Past Medical History: CVA/TIA, Hyperlipidemia, Hypertension, Thyroid Disorder Additional Past Medical History / Comment(s): Borderline diabetic. TIA 4 years ago. GI ulcer at age 14 (Does not remember exactly what happened to fix it. History of Any Multi-Drug Resistant Organisms: None Reported Past Surgical History: Section, Orthopedic Surgery, Tubal Ligation Additional Past Surgical History / Comment(s): Rotator Cuff x2 Past Anesthesia/Blood Transfusion Reactions: Postoperative Nausea & Vomiting (PONV) Past Psychological History: No Psychological Hx Reported Smoking Status: Former smoker Past Alcohol Use History: None Reported Past Drug Use History: None Reported - Past Family History Sister(s) Family Medical History: Coronary Artery Disease (CAD) Father Additional Family Medical History / Comment(s): Heart failure. General Exam Limitations: no limitations Extremities exam: Present: other (There is tenderness noted at the joint line right knee. There is a mild effusion identified. There is also tenderness noted bilaterally. She has a positive Abdoulaye's test but negative Karine, drawer, valgus, and varus testing.) Neurological exam: Present: oriented X3. Absent: motor sensory deficit Psychiatric exam: Present: normal affect, normal mood Skin exam: Present: warm, intact Course Vital Signs 09/29/21 19:00 Temperature 98.5 F Pulse Rate 60 Respiratory 18 Rate Blood Pressure 154/78 O2 Sat by Pulse 100 Oximetry Medical Decision Making - Medical Decision Making The right knee x-ray does not show any acute processes. It is felt as though she likely does have a medial viscus tear. She is placed in a knee immobilizer. She is counseled regarding her diagnosis in detail. She has seen Dr. Jimenez [facility] the [facility] She'll follow up with them as well. She has Naprosyn at home which she takes for pain and feels as though this is adequate. Return parameters are discussed. Close follow-up recommended. Of note this replaces previous dictation. Disposition Clinical Impression: Knee sprain Disposition: HOME SELF-CARE Condition: Good Instructions (If sedation given, give patient instructions): Knee Sprain (ED), Knee Immobilizer (ED) Additional Instructions: Please take your home Naprosyn as needed for pain and inflammation. Please follow-up with her orthopedic physician in the next several days. Is patient prescribed a controlled substance at d/c from ED?: No Referrals: Brandt Farmer DO [Primary Care Provider] - 1-2 days Time of Disposition: 20:08
== END 2021-09-29 20:20 | disposition home or self-care (01) ==
LOC: EC 16:33
DX: S83.91XA Sprain of unspecified site of right knee, initial encounter (principal); I10 Essential (primary) hypertension; E78.5 Hyperlipidemia, unspecified; E07.9 Disorder of thyroid, unspecified; Z86.73 Personal history of transient ischemic attack (TIA), and cerebral infarction without residual deficits; Z87.891 Personal history of nicotine dependence; Z79.890 Hormone replacement therapy; Z79.899 Other long term (current) drug therapy; X58.XXXA Exposure to other specified factors, initial encounter; Y99.0 Civilian activity done for income or pay
CPT/HCPCS: 99283

== ENCOUNTER → 2021-11-25 | Outpatient (CLI) | payer OTHER ==
[2021-11-25 12:44] VITALS: BP 154/87; PULSE 60; RESP 17; TEMP 97.9
--- NOTE | 2021-11-25 13:45 | P.HPOB ---
History of Present Illness H&P Date: 11/25/21 Chief Complaint: The patient is here for her routine gynecologic exam and ma mmogram. This is a 55-year-old 032 with an LMP of 2014. The patient is here to reestablish with this office. She was last here in 2018. She has not been sexually active since prior to 2018. She has stopped sexual activity because of severe discomfort with sexual activity. When she was last here, I diagnosed her with vaginismus along with genital atrophy. She did not try the estrogen v aginal cream because of the cost and at that time she did not have insurance. She now has insurance and is interested in trying the estrogen vaginal cream. She is otherwise without complaints. Review of Systems Weight has been stable. She denies respiratory or cardiac problems. GI: She has slight stool incontinence and will always have some stool when she wipes even when she did not just have a bowel movement. She does not lose large pieces of stool into her underwear but notices it is not clean when she wiped. Past Medical History Past Medical History: CVA/TIA, Hyperlipidemia, Hypertension, Thyroid Disorder Additional Past Medical History / Comment(s): Borderline diabetic. TIA in the past. GI ulcer at age 14 (Does not remember exactly what happened to fix it. PAST [employer] HISTORY: She has no history of STDs. History of Any Multi-Drug Resistant Organisms: None Reported Past Surgical History: Section, Orthopedic Surgery, Tubal Ligation Additional Past Surgical History / Comment(s): Rotator Cuff bilateral. section 2. colonoscopy 2009. Past Anesthesia/Blood Transfusion Reactions: Postoperative Nausea & Vomiting (PONV) Past Psychological History: No Psychological Hx Reported Smoking Status: Former smoker Past Alcohol Use History: Rare (2 or 3 drinks per year) Additional Past Alcohol Use History / Comment(s): QUIT SMOKING 20 + YEARS AGO Past Drug Use History: None Reported Additional History: She has been since 2013. At [employer]. She has not been sexually active for many years. - Past Family History Sister(s) Family Medical History: Coronary Artery Disease (CAD) Father Additional Family Medical History / Comment(s): Heart failure. Medications and Allergies Home Medications Medication Instructions Recorded Confirmed Type Naproxen 500 mg PO BID 07/19/20 11/25/21 History Levothyroxine Sodium [Synthroid] 125 mcg PO DAILY 01/21/21 11/25/21 History hydroCHLOROthiazide 25 mg PO DAILY 01/21/21 11/25/21 History Atorvastatin Calcium [Lipitor] 40 mg PO DAILY 11/25/21 11/25/21 History Allergies Allergy/AdvReac Type Severity Reaction Status Date / Time No Known Allergies Allergy Verified 11/25/21 12:40 Exam Vital Signs Temp Pulse Resp BP 11/25/21 12:42 97.9 F 60 17 154/87 Intake and Output 11/24/21 11/25/21 11/25/21 22:59 06:59 14:59 Other: Weight 84.368 kg Height 5 feet 4 inches, weight 186 pounds, BMI 31.9. This is a well-developed well-nourished white female who is alert and oriented times 3 in no acute distress. HEENT: Within normal limits. NECK: Supple without mass or thyromegaly. CHEST AND LUNGS: Clear to auscultation. HEART: Regular rate and rhythm. BREASTS: Are without mass or discharge. AXILLARY EXAM: Negative for adenopathy. BACK: Negative for CVA tenderness. ABDOMEN: Soft, nontender, without palpable masses. PELVIC EXAM: Normal external genitalia with mild to moderate atrophy. Cervix and vagina appear normal with mild to moderate atrophy. The vaginal opening is very small and there is increased tone of the perivaginal muscles. The small Graves speculum was needed. There is no evidence of prolapse. The uterus is midposition, nongravid size and nontender. There are no palpable adnexal masses or tenderness. RECTAL EXAM: Rectovaginal exam is negative for mass or tenderness and is negative for occult blood. There is very strong sphincter tone. EXTREMITIES: Nontender. IMPRESSION: 1. 55-year-old menopausal female with history of dyspareunia which seems to be secondary to genital atrophy and probably some component of vaginismus. 2. Slight stool incontinence with no significant sphincter tone problem on exam. PLAN: 1. Pap smear cotest was performed. 2. Self breast awareness was discussed with the patient. We have also discussed symptoms associated with inflammatory breast cancer. 3. Screening mammogram will be done today. 4. We have discussed the many factors may be related to her dyspareunia including genital atrophy, vaginismus and lack of vaginal deliveries in the past. We will have a trial of Premarin vaginal cream 1 g into the vagina 2 times weekly. The electronic prescription will be sent to [facility] pharmacy in [place]. 5. We have discussed kegal exercises to see if this helps with stool incontinence. Because there does not seem to be significantly told 1 in these muscles, I am not sure if this is going to be very helpful. 6.Osteoporosis prevention was discussed. I have stressed the importance of adequate calcium, vitamin D and regular exercise. Recommended amounts of calcium and vitamin D were also discussed. 7. She was advised to return in one year for her annual well woman exam and as needed.
--- NOTE | 2021-11-26 16:58 | MM ---
Reason for Exam: Screening (asymptomatic). Last mammogram was performed 4 year(s) and 5 month(s) ago. Patient History: Menarche at age 11. First Full-Term at age 19. Postmenopausal. Risk Values: Faby 5 year model risk: 1.1%. NCI Lifetime model risk: 7.2%. Prior Study Comparison: 06/23/2017 Bilateral Screening Mammogram, [facility]. 06/24/2017 Left Diagnostic Mammogram, [facility]. 12/21/2017 Left Diagnostic Mammogram, [facility]. Tissue Density: The breast tissue is heterogeneously dense. This may lower the sensitivity of mammography. Findings: Analyzed By CAD. There is no suspicious group of microcalcifications or new suspicious mass in either breast. Stable heterogenous calcifications within the anterior left breast from prior examinations. No significant change from prior exams. Overall Assessment: Benign, BI-RAD 2 Management: Screening Mammogram of both breasts in 1 year. A clinical breast exam by your physician is recommended on an annual basis and results should be correlated with mammographic findings. Electronically signed and approved by: Lino Hsu D.O.
== END ==
LOC: WWCWWP 12:24
PROVIDERS: ATTEND Obstetrics & Gynecology
DX: Z12.31 Encounter for screening mammogram for malignant neoplasm of breast (principal); R15.9 Full incontinence of feces; E78.5 Hyperlipidemia, unspecified; I10 Essential (primary) hypertension; Z87.891 Personal history of nicotine dependence; Z86.73 Personal history of transient ischemic attack (TIA), and cerebral infarction without residual deficits; Z79.899 Other long term (current) drug therapy
CPT/HCPCS: 77063; 77067

== ENCOUNTER → 2022-05-18 | Outpatient (CLI) | payer OTHER ==
--- NOTE | 2022-05-18 10:36 | USB ---
Reason for Exam: Clinical finding. Patient History: Menarche at age 11. First Full-Term at age 19. Postmenopausal. Risk Values: Faby 5 year model risk: 1.1%. NCI Lifetime model risk: 7.1%. Technique: Method: Whole Breast Handheld. Prior Study Comparison: 06/24/2017 Left Diagnostic Mammogram, [facility]. 12/21/2017 Left Diagnostic Mammogram, [facility]. 11/25/2021 Bilateral MG 3D screening mammo w/cad, [facility]. Findings: The whole breast of the left breast, the axilla of the left breast and the retroareolar of the left breast were scanned. A complete US of all four quadrants of the left breast and retro-areolar region were reviewed. No solid or cystic masses are identified.. Overall Assessment: Negative, BI-RAD 1 Management: Screening Mammogram of both breasts in 6 months. A clinical breast exam by your physician is recommended on an annual basis and results should be correlated with mammographic findings. This exam should not preclude additional follow-up of suspicious palpable abnormalities. Results were given to the patient verbally at the time of exam. Electronically signed and approved by: Lino Hsu D.O.
== END | disposition home or self-care (01) ==
LOC: RADUSWWP 10:11
PROVIDERS: ATTEND Family Medicine
DX: N64.4 Mastodynia (principal); Z78.0 Asymptomatic menopausal state

== ENCOUNTER → 2022-12-18 | Outpatient (CLI) | payer SELFPAY ==
--- NOTE | 2022-12-18 15:51 | CT ---
EXAMINATION TYPE: CT sinus wo con DATE OF EXAM: 12/18/2022 COMPARISON: None HISTORY: congestion, ear aches CT DLP: 597 mGycm CONTRAST: 0 mL of Isovue 300 The paranasal sinuses are examined in the axial plane at 2 mm thick sections. Reconstructed images i n the coronal plane were obtained. The maxillary sinuses are clear. The ethmoid air cells are clear. The sphenoid sinuses are clear. The frontal sinuses are clear. Hilar air cells are present. The septum is evaluated. There is septal deviation to the left. The ostiomeatal units are patent. Mastoid air cells are clear. Torus tubarius and fossa of Rosenmuller appear normal. No obvious middle ear or external auditory canal abnormalities. No expansion of the internal auditory canals is eviden t. IMPRESSIONS: 1. No suspicious mucosal thickening or air-fluid levels to suggest chronic or acute sinusitis.
== END | disposition home or self-care (01) ==
LOC: RADCTMAIN 14:26
PROVIDERS: ATTEND Otolaryngology
DX: J32.9 Chronic sinusitis, unspecified (principal)
CPT/HCPCS: 70486